=== PATIENT | female | born 1945 | race Caucasian/White ===

== ENCOUNTER → 2017-11-09 17:18 | Outpatient (CLI) | payer OTHER, SELFPAY ==
--- NOTE | 2017-11-09 17:20 | DI.RAD.S_ITS ---
PROCEDURE: XR KNEE LT 3V INDICATIONS: KNEE PAIN TECHNIQUE: 3 views of the left knee were acquired. COMPARISON: [facility], , KNEE 3V RIGHT, 03/15/2012, 11:51. FINDINGS: Bones: No fractures or dislocations. No suspicious bony lesions. There is moderately severe left medial compartment joint space narrowing, and moderate such degeneration at the right medial compartment. Soft tissues: No joint effusion. No suspicious soft tissue calcifications. IMPRESSION: Asymmetric knee joint osteoarthritis moderately severe on the left and moderate on the right involving the medial compartments. No effusion or loose body found. No acute or chronic trauma seen. Dictated by: Ralph Garcia M.D. on 11/10/2017 at 8:33 Approved by: Ralph Garcia M.D. on 11/10/2017 at 8:34
--- NOTE | 2017-11-09 17:20 | DI.RAD.S_ITS ---
PROCEDURE: XR KNEE RT 3V INDICATIONS: KNEE PAIN TECHNIQUE: 3 views of the right knee were acquired. COMPARISON: [facility], , XR KNEE LT 3V, 11/09/2017, 17:08. [facility], , KNEE 3V RIGHT, 03/15/2012, 11:51. FINDINGS: Bones: No fractures or dislocations. The narrowing of the medial compartment at the right knee is less than on the left for the current study. With reference to the prior right knee plain films from 2011 there has been a small degree of interval worsening of thinning of the medial compartment joint width. No suspicious bony lesions. Soft tissues: No joint effusion. No suspicious soft tissue calcifications. IMPRESSION: Asymmetric knee joint osteoarthritis greater on the left than the right at the medial compartment currently, and having only mildly worsened with reference to the comparison study of the right knee from 2011. No effusion or loose body suspected currently. No trauma found. Dictated by: Ralph Garcia M.D. on 11/10/2017 at 8:35 Approved by: Ralph Garcia M.D. on 11/10/2017 at 8:39
== END ==
PROVIDERS: Family Provider Family Medicine; PCP Family Medicine; Visit Provider Family Medicine
DX: M17.0 Bilateral primary osteoarthritis of knee (principal); M25.562 Pain in left knee; M25.561 Pain in right knee
CPT/HCPCS: 73562

== ENCOUNTER → 2019-11-22 10:11 | Outpatient (CLI) | payer MEDICARE, SELFPAY ==
[2019-11-22 11:58] LABS: Add Manual Diff / Slide Review NO; Basophils Absolute Auto 100 /uL (0-100); Basophils Percent Auto 1.4 % (0-2); Eosinophils Absolute Auto 300 /uL (0-450); Eosinophils Percent Auto 7.2 % (2-4); Hematocrit 39.6 % (36-46); Hemoglobin 13.3 g/dL (12.0-16.0); Lymphocytes Absolute Auto 1400 /uL (1100-4500); Lymphocytes Percent Auto 34.6 % (25-40); Mean Corpuscular HGB Conc 33.6 % (30-36); Mean Corpuscular Hemoglobin 31.3 PG (26-34); Mean Corpuscular Volume 93.1 fL (80-100); Monocytes Absolute Auto 300 /uL (0-900); Monocytes Percent Auto 7.9 % (3-14); Neutrophils Absolute Auto 2000 /uL (1500-7000); Neutrophils Percent Auto 48.9 % (50-75); Platelet Count 250 X10^3/uL (150-400); Red Blood Cell Count 4.25 X10^6/uL (4.0-5.2); White Blood Cell Count 4.1 X10^3/uL (4.5-11.0)
[2019-11-22 12:33] LABS: Alanine Aminotransferase 19 IU/L (<35); Albumin 4.1 g/dL (3.5-5.0); Albumin Globulin Ratio 1.6 (1.0-2.8); Alkaline Phosphatase 70 U/L (38-126); Aspartate Aminotransferase 28 IU/L (14-36); BUN Creatinine Ratio 18.1 (6-22); Bilirubin Total 0.6 mg/dL (0.2-1.3); Blood Urea Nitrogen 13 mg/dL (7-17); Calcium 9.3 mg/dL (8.4-10.2); Carbon Dioxide 31 mmol/L (22-32); Chloride 103 mmol/L (98-107); Estimated Glomerular Filt Rate > 60.0 mL/min (>60); Globulin 2.6 g/dL (1.7-4.1); Glucose 86 mg/dL (80-110); HEMOLYSIS < 15 (0-50); Potassium 4.8 mmol/L (3.4-5.1); Sodium 138 mmol/L (137-145); Total Protein 6.7 g/dL (6.3-8.2)
[2019-11-22 13:04] LABS: TSH w/ Reflex to FT4 1.27 uIU/mL (0.47-4.68)
== END ==
PROVIDERS: Family Provider Family Medicine; PCP Family Medicine; Referring Provider Family Medicine; Visit Provider Family Medicine
DX: E03.9 Hypothyroidism, unspecified (principal)
CPT/HCPCS: 36415; 80053; 84443; 85025

== ENCOUNTER → 2020-02-21 14:54 | Outpatient (CLI) | payer MEDICARE, SELFPAY | PROVIDERS: Family Provider Family Medicine; PCP Family Medicine; Referring Provider Family Medicine; Visit Provider Family Medicine | DX: R19.7 Diarrhea, unspecified (principal) | CPT/HCPCS: 87045; 87177; 87899 ==

== ENCOUNTER → 2020-05-03 13:15 | Outpatient (CLI) | payer MEDICARE, SELFPAY ==
--- NOTE | 2020-05-03 13:15 | DI.US.S_ITS ---
PROCEDURE: US RENAL COMPLETE INDICATIONS: LEFT LOWER QUADRANT PAIN AND FULLNESS WITH URINATION TECHNIQUE: Real-time scanning was performed of the kidneys and bladder, with image documentation. COMPARISON: [facility], CT, ABDOMEN/PELVIS WITH CONTRAST, 02/02/2017, 14:51. FINDINGS: Kidneys: Kidneys are normal in size. Right kidney measures 8.7 cm long; left kidney measures 8.6 cm long. Right renal cortical thickness is 1.0 cm; left renal cortical thickness is 1.7 cm. Renal cortical echotexture is normal. No hydronephrosis or nephrolithiasis. Right extrarenal pelvis is again seen. No suspicious solid mass lesions. Right extrarenal pelvis noted. Bladder: Pre-void bladder volume is 165 mL. Post-void residual is 13 mL. Pre-void images demonstrate no intraluminal masses or stones. On pre-void images, left ureteral jets are noted with color Doppler interrogation. (Of note, ureteral jets may not be detectable in up to 25% of cases due to insufficient differences in specific gravity between ureteral and bladder urine). Miscellaneous: No free pelvic fluid. IMPRESSION: Normal appearance of the kidneys. Dictated by: Gustavo Chaudhari [facility] Interpreted: Murray Morris MD on 05/03/2020 at 15:56 Approved by: Murray Morris M.D. on 05/03/2020 at 17:08
== END ==
PROVIDERS: Family Provider Family Medicine; PCP Family Medicine; Referring Provider Family Medicine; Visit Provider Family Medicine
DX: R30.0 Dysuria (principal); R10.32 Left lower quadrant pain
CPT/HCPCS: 76770

== ENCOUNTER → 2020-06-18 11:39 | Outpatient (CLI) | payer MEDICARE, SELFPAY ==
[2020-06-18 12:50] LABS: COVID19 -Nasal RAPID Negative (Negative)
== END ==
PROVIDERS: PCP Family Medicine; Visit Provider Obstetrics & Gynecology
DX: Z01.812 Encounter for preprocedural laboratory examination (principal); Z20.822 Contact with and (suspected) exposure to COVID-19
CPT/HCPCS: 87635; C9803

== ENCOUNTER 2020-06-19 08:27 | Day surgery (SDC) | payer MEDICARE, SELFPAY ==
[2020-06-18 17:07] VITALS: BMI 20.2
[2020-06-19] VITALS (15 sets, daily range): BP systolic 97–133; BP diastolic 45–74; PULSE 52–69; RESP 8–18; TEMP 36.3–37.7; O2SAT 95–100; BMI 20.2
--- NOTE | 2020-06-19 | PATH_ITS ---
[facility] Accession Number: [id number] . 01 Material submitted: . uterus - UTERUS, BILATERAL FALLOPIAN TUBES AND BILATERAL OVARIES . 02 Diagnosis: Uterus, Bilateral Fallopian Tubes and Bilateral Ovaries, Hysterectomy and Bilateral Salpingo-oophorectomy (Weight 41 grams): Cervix with hyperkeratosis and parakeratosis, suggestive of prolapse; negative for squamous dysplasia or malignancy. Endocervix with prominent nabothian gland cysts and no significant histomorphologic abnormality. Endometrium with cystic atrophy; negative for glandular hyperplasia, cytologic atypia, or malignancy. Myometrium with two intramural leiomyomas (3 mm and 10 mm, calcified). Uterine serosa with no significant histomorphologic abnormality. Many vessels demonstrate Monckeberg's calcifications (non-specific). Right ovary with two benign serous cysts (1- 2 mm in greatest dimension). Left ovary with no significant histomorphologic abnormality. Right and left fallopian tubes with no significant histomorphologic abnormality; negative for epithelial atypia or malignancy. [facility] 06/22/2020 1254 Local . 02 Electronically signed: . Linda Roland MD, Pathologist NPI- [id number] . 01 Gross description: . The specimen is received in formalin, labeled uterus, bilateral fallopian tubes and bilateral ovaries and consists of a 41-gram uterus and cervix with attached bilateral adnexa. The specimen measures 7.0 cm from superior fundus to cervix by 4.5 cm from cornu to cornu by 2.5 cm from anterior to posterior. The segura-pink smooth ectocervix measures 3.0 x 3.0 cm and there is a 0.8 x 0.1 cm probe-patent os. The serosa is segura-pink and smooth. The specimen is bivalved to reveal a segura-pink herringbone endocervical mucosa. The endometrial cavity measures 3.0 x 1.5 cm and displays a segura-pink glistening endometrium measuring 0.1 cm in thickness. The myometrium is segura-pink and trabeculated with focal areas of calcification, measuring 1.0 cm in thickness. There is a 1.0 x 1.0 x 0.1 cm segura-white whorled calcified intramural leiomyoma with no areas of hemorrhage, necrosis or cystic degeneration. The ovaries average 1.6 x 1.0 x 0.8 cm and display a segura cerebriform external surface. Sectioning reveals a segura ovarian stroma. The right fallopian tube measures 5.0 cm in length by 0.9 cm in diameter and the left fallopian tube measures 4.2 cm in length by 0.8 cm in diameter. The serosa is segura-pink and smooth. Sectioning reveals a segura mucosa and a stellate lumen measuring 0.2 cm in diameter. Jewelry Sales Representative sections are submitted. . A1: anterior cervix. A2: posterior cervix. A3: anterior uterus full-thickness cross-section, to include calcified leiomyoma (following decalcification). A4: anterior uterus, full-thickness sections. A5: posterior uterus, full-thickness sections. A6: right ovary, bisected and entirely submitted. A7: right fallopian tube, bisected fimbria and central cross-sections. A8: left ovary, bisected and entirely submitted. A9: left fallopian tube, bisected fimbria and central cross-sections. (EA:[id number]) /MRV 06/20/2020 1029 Local . 02 Pathologist provided ICD-10: R10.2, N81.4, R35.1 . 02 CPT . 478325 Performed at: 01 [facility] [address] [place] [address], [place], [place] [id number] MD Ismael Finney MD Phone: [phone] Performed at: 02 [facility] [address] [place], [place] [id number] MD Stacey Wyatt MD Phone: [phone]
[2020-06-19] MEDS: LACTATED RINGERS 1,000 ML 100 ML IV ×2 (09:11→14:57)
--- NOTE | 2020-06-19 09:49 | PM.PREOP ---
Pre-operative Note COVID-19 COVID-19 status: Negative Result date/Date tested (Pos, Neg/Pending): 06/18/20 Interval Note History & Physical reviewed/Exam performed by Physician: Yes Changes to H&P: No H&P completed within 30 days and has changed as indicated here:: 06/11/20
[2020-06-19] MEDS: CEFAZOLIN 2 GM/100 ML FROZ.PIGGY IV (10:45)
--- NOTE | 2020-06-19 11:13 | SUR.OPER ---
Addendum entered by Adriane Olson R.N. 06/19/20 11:30: Pt voided at 1033 prior to entering the OR. Original Note: Lithotomy on padded OR bed. Maiden Pad Positioner under torso. Head on pillow, arms padded and tucked at sides. Legs secured in padded yellow fins stirrups.
[2020-06-19] MEDS: BUPIVACAINE 0.5% W/ EPI (PF) 30 ML VIAL INJ (11:25)
--- NOTE | 2020-06-19 12:14 | P.OP_ITS ---
Operative Date/Time/Diagnoses Date of procedure: 06/19/20 Time of procedure: 12:14 Pre-op diagnosis: Second to third-degree uterine prolapse Post-op diagnosis: same Procedure & Clinicians Procedure: Procedures Operation Date: 06/19/20 09:45 Actual Procedures Side Surgeon p Laparoscopic Assisted Vag Hysterectomy W/Bilateral Salpingo-oophorectomy Yvette Hudson MD Lysis of omental to anterior abdominal wall adhesions Indications: Second to third-degree uterine prolapse Symptomatic uterine prolapse Surgeon: Yvette Hudson Crime Scene Specialist: Leeanna Celestin Anesthesia Type: General and Local Operative Notes Findings: Five week size prolapsed uterus Normal tubes and ovaries Right upper quadrant adhesions omentum to anterior abdominal wall Closure Type: primary Specimen(s): left tube & ovary, right tube & ovary and uterus Applied: catheter Estimated blood loss (mL): 75 Blood products transfused: none Procedure in detail: The patient was taken to the operating room where she was placed in the dorsal supine position. After adequate general endotracheal anesthesia was achieved, she was placed in the dorsal lithotomy position, and prepped and draped in the usual sterile fashion. A timeout was performed. A bivalve speculum was placed into the vagina, and a single-tooth tenaculum was placed on the anterior lip of the cervix. The cervical os was sequentially dilated until the ZUMI uterine manipulator could pass easily into the endometrial cavity. The single-tooth tenaculum was removed from the anterior lip of the cervix, and the bivalve speculum was removed from the vagina. Attention was then turned to the abdomen where 6 mL of half percent Marcaine with epinephrine were injected in the umbilical fold. A 5 mm incision was made. The Verees needle was placed into the peritoneal cavity, and its placement confirmed by aspiration and drop test. The abdominal cavity was insufflated with 4 L of CO2. The Verees needle was removed, and a 5 mm trocar was placed without difficulty. Initial inspection of the pelvis revealed the findings noted above. 2 other incisions were made midway between the pubic symphysis and umbilicus 4 cm lateral to the midline. These were 5 mm incisions. Two 5 mm trochars were placed under direct visualization. The right tube and ovary were grasped with an atraumatic grasper. The infundibulopelvic ligament on the right side was cauterized and cut with plasma kinetic. The round ligament and broad ligament were cauterized and cut. This was continued to the level of the uterine arteries. This was repeated on the patient's left side. The instru ments were removed from the abdomen. Attention was then turned to the vagina where the ZUMI uterine manipulator was removed from the uterus. The cervix was grasped with a 4 tooth tenaculum. 10 mL of half percent Marcaine with epinephrine were injected circumferentially around the cervix. The cervix was circumscribed. The bladder and rectum were dissected off the lower uterine segment and cervix with an open moistened Ray-Marcellus. The peritoneum was entered sharply with the Metzenbaum scissors anteriorly and a [place] placed. The peritoneum was entered posteriorly with the Metzenbaum scissors and the long weighted speculum was placed into the posterior cul-de-sac. The uterosacral cardinal ligament complexes were clamped, transected, and suture ligated with 0 Vicryl. These were attached to hemostat. The uterine arteries were clamped, transected, and suture ligated with 0 Vicryl. The uterus was handed off for specimen with the tubes. The peritoneum was closed with a pursestring suture with 2-0 Vicryl. The vaginal cuff was closed with 0 Vicryl with a series of simple interrupted sutures. The tagged sutures were cut. A moistened vaginal pack was placed into the vagina. Attention was then turned back to the abdomen and the abdominal cavity was re-insufflated with carbon dioxide gas. Inspection of the vaginal cuff showed a area of oozing in the midline. This was cauterized with the PlasmaKinetic for hemostasis. The other pedicles were hemostatic. In viewing the right upper quadrant there was omentum stuck to the anterior abdominal wall. This was taken down with the PlasmaKinetic. Hemostasis was achieved. The instruments were removed from the abdomen. The CO2 was allowed to escape. The incisions were repaired with 4 0 Monocryl in a subcuticular fashion. Steri-Strips and Allevyn dressings were placed. Sponge, lap, and instrument counts were correct x2. The patient tolerated the procedure well and was taken to PACU in stable condition. Complications: none Post-operative Condition: stable Disposition: PACU Plan for aftercare: To acute care after recovery
[2020-06-19] MEDS: OXYCODONE/ACETAMINOPHEN 5/325 TABLET 1 TAB PO ×2 (12:41→22:01)
[2020-06-19] MEDS: ONDANSETRON 4 MG/2 ML INJ IV (12:41)
[2020-06-19] MEDS: KETOROLAC 30 MG/ML VIAL 15 MG IV (18:07)
[2020-06-19] MEDS: DOCUSATE 250 MG CAPSULE PO (21:55)
--- NOTE | 2020-06-19 23:07 | PC.NURSE ---
Blood pressure slightly low at 97/46. Temp 99.8 temporal, retaken oral and was 98.2 F. Pain 5/10 in low abdomen. Given PRN percocet at 2200. Three lap site. Middle site dressing was fully saturated with blood and allevyn dressing was changed. Bassett cath patent and collecting clear, yellow urine. Passing gas.
[2020-06-20] MEDS: LACTATED RINGERS 1,000 ML 100 ML IV (00:40)
[2020-06-20] MEDS: KETOROLAC 30 MG/ML VIAL 15 MG IV ×2 (00:40→05:46)
[2020-06-20 00:45] VITALS: BP 91/52; PULSE 62; RESP 18; TEMP 37; O2SAT 97
[2020-06-20 05:30] VITALS: BP 96/58; PULSE 71; RESP 18; TEMP 36.8; O2SAT 98
[2020-06-20] MEDS: LEVOTHYROXINE 50 MCG TABLET PO (05:46)
[2020-06-20] MEDS: OXYCODONE/ACETAMINOPHEN 5/325 TABLET 1 TAB PO ×2 (06:13→10:20)
[2020-06-20 07:01] LABS: Add Manual Diff / Slide Review NO; Basophils Absolute Auto 100 /uL (0-100); Basophils Percent Auto 0.8 % (0-2); Eosinophils Absolute Auto 0 /uL (0-450); Eosinophils Percent Auto 0.2 % (2-4); Hematocrit 33.2 % (36-46); Hemoglobin 11.1 g/dL (12.0-16.0); Lymphocytes Absolute Auto 1800 /uL (1100-4500); Lymphocytes Percent Auto 17.9 % (25-40); Mean Corpuscular HGB Conc 33.5 % (30-36); Mean Corpuscular Hemoglobin 30.9 PG (26-34); Mean Corpuscular Volume 92.3 fL (80-100); Monocytes Absolute Auto 700 /uL (0-900); Monocytes Percent Auto 7.4 % (3-14); Neutrophils Absolute Auto 7200 /uL (1500-7000); Neutrophils Percent Auto 73.7 % (50-75); Platelet Count 209 X10^3/uL (150-400); Red Cell Distribution Width 13.4 % (11.6-14.8); White Blood Cell Count 9.8 X10^3/uL (4.5-11.0)
[2020-06-20 07:28] VITALS: BP 113/61; PULSE 55; RESP 16; TEMP 36.6; O2SAT 99
[2020-06-20] MEDS: DOCUSATE 250 MG CAPSULE PO (09:13)
--- NOTE | 2020-06-20 09:16 | CM.DPC ---
DCP/Assessment: Reviewed chart. Patient is a 75yr old female admitted to [facility] for elective repair of Uterovaginal prolapse with Dr. Hudson. PCP listed is Dr. Lim. Primary payor is 1)[facility]. Met with patient explained CM/SW role. Patient alert and oriented in chair at time of visit. Patient reports that she will be discharging this AM. Orders have been obtained. Per nursing patient need to urinate prior to d/c. Patient reports that her spouse will pick her up. Patient provided with number to call when he arrives. Staff aware that he will pick her up at ED entrance. P: Home today. CHEPE Palmer Discharge Planning/Care Management CM Discharge Assessment Start: 06/20/20 09:14 Freq: Status: Active Protocol: Document 06/20/20 09:14 HONORIOS (Rec: 06/20/20 09:16 KJS [id number]) Discharge Planning Assessment Assigned Nurse Wound CHEPE Palmer Contact Information Edu Block (spouse) # Advance Directives? Yes Advance Directives on File No History Provided By Patient,Medical Record Prior Living Arrangements House Household Members spouse Type of transporation used prior to Drives own vehicle admit Independent with ADL's Yes Is patient alert and oriented? Yes Caregiver for Another No Barriers to Discharge No Discharge Plan Home Transportation Arrangement Family to provide transport home. Referrals Initiated None needed Whiteboard Updated in Patient Room with Yes name and ext. # of Nurse Wound Review Status In Process Next Review Type Continued Stay Review Pre-Anesthesia Assessment Start: 06/05/20 10:27 Freq: Status: Complete Protocol: Document 06/18/20 17:07 FELIPE (Rec: 06/05/20 10:50 [facility] [id number]) Pre-Anesthesia Assessment Patient Information Reviewed Via Chart Review Seen Specialist in Last 12 Months Yes Specialist Seen Contracts Intern Height 149.86 cm Weight 45.359 kg Body Mass Index (BMI) 20.2 Anesthesia Review Requested No Injection Specialist No alcohol intake never Smoking Status Never smoker Bladder Pattern Nocturia Patient No Lactating No Presence of External or Internal Medical Yes Devices Marital Status
--- NOTE | 2020-06-20 10:58 | PC.NURSE ---
Discharge: Pt feels ready to d/c home. Has been able to void x2 since hazel removal, Scant vag flow. UOP is pink tinged. No clots seen. Po pain meds are effective per pt. Tolerates diet w/out problems. Has been up in room and gait is steady. Seen by MD and received d/c instructions from her. Reviewed d/c packet. Rx was esent and pt shown this. Questions answered. Pt d/c home via auto w/spouse.
== END 2020-06-20 10:26 | disposition home or self-care (01) ==
LOC: OR 08:32 → AC 08:34
PROVIDERS: PCP Family Medicine; Referring Provider Obstetrics & Gynecology; Visit Provider Obstetrics & Gynecology
PROC: 0UT9FZZ Resection of Uterus, Via Natural or Artificial Opening With Percutaneous Endoscopic Assistance (ICD-10-PCS; CPT 58552; principal; 2020-06-19 09:45)
DX: N81.2 Incomplete uterovaginal prolapse (principal); K66.0 Peritoneal adhesions (postprocedural) (postinfection); R35.1 Nocturia; N88.8 Other specified noninflammatory disorders of cervix uteri; D25.1 Intramural leiomyoma of uterus; N83.202 Unspecified ovarian cyst, left side
CPT/HCPCS: 58552; 36415; 85025; J0690; J1100; J1885; J2250; J2405; J2704; J3010

== ENCOUNTER 2020-07-20 15:06 | Emergency (ER) | payer MEDICARE, SELFPAY ==
[2020-06-19 14:07] VITALS: BMI 20.2
[2020-07-20 15:27] VITALS: BP 106/65; PULSE 79; RESP 12; TEMP 36.4; O2SAT 99; BMI 20.2
--- NOTE | 2020-07-20 15:36 | DI.US.S_ITS ---
PROCEDURE: US PERIPH VENOUS LOW EXTREM LT INDICATIONS: LEFT LEG PAIN TECHNIQUE: Real-time imaging, as well as color and pulse Doppler interrogation, were performed of the lower extremity deep veins from the inguinal ligament to the popliteal fossa. COMPARISON: None. FINDINGS: The common femoral, femoral and popliteal veins are normally compressible, and free of intraluminal thrombus. Color and pulse Doppler demonstrate normal phasic intraluminal flow. There is normal augmentation response to distal compression maneuver. IMPRESSION: Negative for deep venous thrombosis. Dictated by: Jose Cruz Leung M.D. on 07/20/2020 at 15:38 Approved by: Jose Cruz Leung M.D. on 07/20/2020 at 15:38
--- NOTE | 2020-07-20 16:54 | ED_ITS ---
HPI - Extremity Injury (Lower) General Chief Complaint: Extremity Injury, Lower Stated Complaint: LEFT LEG PAIN Time Seen by Provider: 07/20/20 16:29 Source: patient Mode of arrival: Wheelchair Limitations: no limitations History of Present Illness HPI Narrative: Patient is a 75-year-old female were sent over from the walk-in clinic for evaluation of left knee pain and concern for DVT. Patient states that a couple days ago she got out of her car and started having discomfort in her left knee. She did take an ibuprofen last evening if she does feel somewhat better today. She contacted her insurance resource nurse who told her that she should be evaluated for this. She was seen at the walk-in clinic because of tenderness behind her knee she was sent to the emergency department for concerns of a blood clot. She has no chest pain or shortness of breath. Related Data Home Medications Medication Instructions Recorded Confirmed Red Yeast Rice (#RED YEAST RICE) 2 capl PO QDAY #0 07/01/12 07/05/20 cholecalciferol (vitamin D3) 2,000 unit PO QDAY #0 07/01/12 07/05/20 [Vitamin D3] multivit 23-cnkmcvll-mab-chrom 1 cap PO DAILY #0 07/01/12 07/05/20 niacin 1,000 mg PO QDAY #0 07/01/12 07/05/20 omega-3 fatty acids-vitamin E 1 cap PO DAILY #0 07/01/12 07/05/20 coenzyme Q10 [CoQ-10] 100 mg PO DAILY #0 03/03/16 07/05/20 [vitamin b6] #0 02/18/17 07/05/20 thiamine HCl (vitamin B1) [Vitamin 100 mg PO DAILY #0 02/18/17 07/05/20 B-1] magnesium 1 mg PO DAILY 12/08/19 07/05/20 potassium citrate PO 12/08/19 07/05/20 turmeric PO 12/08/19 07/05/20 ferrous sulfate [Iron (ferrous 325 mg PO DAILY 06/19/20 07/05/20 sulfate)] Previous Rx's Medication Instructions Recorded triamcinolone acetonide 0.1 % See Rx Instructions TOPICAL BID 04/23/20 topical cream #15 g levothyroxine 50 mcg tablet 50 mcg PO QDAY #90 tabs 05/21/20 oxycodone 5 mg PO Q4H PRN #14 tab 06/20/20 Allergies Allergy/AdvReac Type Severity Reaction Status Date / Time No Known Drug Allergies Allergy Verified 07/20/20 15:31 Review of Systems Constitutional Constitutional: Denies fever(s) and Denies headache(s) ENT Ears, Nose, Mouth, and Throat: Denies headache(s) Cardiovascular Cardiovascular: Denies chest pain Respiratory Respiratory: Denies pain with cough Gastrointestinal Gastrointestinal: Denies abdominal pain Genitourinary Genitourinary: Denies dysuria Genitourinary: Denies dysuria Musculoskeletal Comments: Left knee pain Integumentary/Breasts Skin/Breast: Denies lesions and Denies rash Neurologic Neurologic: Denies behavioral changes and Denies headache(s) Psychiatric Psychiatric: Denies behavioral changes Hematologic/Lymphatic On Anticoagulants: No Allergic/Immunologic Allergic/Immunologic: Denies urticaria Patient History Medical History Atrophic vulvovaginitis Benign skin growth Bilateral primary osteoarthritis of knee Insomnia Pelvic relaxation Postmenopausal Surgical History History of cataract removal with insertion of prosthetic lens History of surgical removal of skin lesion Status post breast biopsy Family History Sister Hypothyroid Father Cancer Social History marital status: household members: spouse Smoking Status: Never smoker alcohol intake: never substance use type: does not use Smoking Status: Never smoker Substance Use Type: does not use Exam Initial Vital Signs Initial Vital Signs: Vital Signs Temperature 97.6 F 07/20/20 15:27 Pulse Rate 79 07/20/20 15:27 Respiratory Rate 12 07/20/20 15:27 Blood Pressure 106/65 07/20/20 15:27 Pulse Oximetry 99 07/20/20 15:27 Const General: cooperative and comfortable Limitations: mental status not altered HENMT Head: normal to inspection and normocephalic Resp Effort & Inspection: normal respiratory effort Cardio Rate: regular rate Skin Lesions: no lesions Rashes: no rashes Neuro General: patient alert and patient awake Cognition: normal cognition Speech: speech normal Extrem General: capillary refill normal and No edema Other: Patient is ambulatory. Has no tenderness to palpation along bilateral hamstrings. Does have some tenderness along the lateral aspect of the left knee. Neck tenderness in the posterior aspect. Psych Appearance: grossly normal and well kempt Course Orders Ordered: ED Orders 07/20/20 15:36 US perip venous low extrem lt Stat Vital Signs Vital signs: Vital Signs - 8 hr 07/20/20 15:27 07/20/20 17:15 Temperature 97.6 F Pulse Rate 79 77 Respiratory Rate 12 12 Blood Pressure 106/65 147/70 H Pulse Oximetry 99 98 MDM - Extremity Injury (Lower) Imaging Data US - DVT: Radiologist's Impression: [address] [id number] ReportSigned Patient: Radha Block CMR#: [id number]: 4Acct:[id number]/Sex: 75 / FDate of Service: 07/20/20Loc: EDAccession Number: [id number] Procedure: US perip venous low extrem lt Ordering Provider: Dwayne Bush D.O. PROCEDURE: US PERIP VENOUS LOW EXTREM LT INDICATIONS: LEFT LEG PAIN TECHNIQUE: Real-time imaging, as well as color and pulse Doppler interrogation, were performed of the lower extremity deep veins from the inguinal ligament to the popliteal fossa. COMPARISON: None. FINDINGS: The common femoral, femoral and popliteal veins are normally compressible, and free of intraluminal thrombus. Color and pulse Doppler demonstrate normal phasic intraluminal flow. There is normal augmentation response to distal compression maneuver. IMPRESSION: Negative for deep venous thrombosis. Dictated by: Jose Cruz Leung M.D. on 07/20/2020 at 15:38 Approved by: Jose Cruz Leung M.D. on 07/20/2020 at 15:38 [facility] Narrative Medical decision making narrative: No signs of fracture. Has not had any trauma. No DVT noted on the ultrasound. No indication for x-rays. She does feel better than what she did yesterday. She was given conservative treatments. Was given return precautions and follow-up instructions. She expressed understanding and agreement. Discharge Plan Departure Patient Disposition: Home Clinical Impression: Acute pain of right knee Instructions: How To Perform RICE (Rest, Ice, Compress, Elevate), DI for Knee Pain Activity Restrictions/Additional Instructions: Continue all of your medications as directed. Keep your knee elevated and iced like we discussed. Contact your primary provider for follow-up. Return to the emergency department for any new or worsening symptoms. Prescriptions: No Action triamcinolone acetonide 0.1 % cream See Rx Instructions topical BID Qty: 15 RF: 0 niacin 500 MG tablet 1,000 mg PO QDAY Qty: 0 RF: 0 omega-3 fatty acids-vitamin E 1,000 mg Capsule 1 cap PO DAILY Qty: 0 RF: 0 cholecalciferol (vitamin D3) [Vitamin D3] 2,000 UNIT capsule 2,000 unit PO QDAY Qty: 0 RF: 0 multivit 81-nxqenyfh-wfk-chrom 2.5-200-1 mg-mg-mg Capsule 1 cap PO DAILY Qty: 0 RF: 0 Red Yeast Rice (#RED YEAST RICE) 2 capl PO QDAY Qty: 0 RF: 0 coenzyme Q10 [CoQ-10] 100 mg Capsule 100 mg PO DAILY Qty: 0 RF: 0 thiamine HCl (vitamin B1) [Vitamin B-1] 100 mg Tablet 100 mg PO DAILY Qty: 0 RF: 0 [vitamin b6] Qty: 0 RF: 0 levothyroxine [Synthroid] 50 mcg tablet 50 mcg PO QDAY Qty: 90 RF: 2 magnesium 1 mg PO DAILY RF: 0 potassium citrate PO RF: 0 turmeric PO RF: 0 ferrous sulfate [Iron (ferrous sulfate)] 325 mg (65 mg iron) Tablet 325 mg PO DAILY RF: 0 oxycodone 5 mg tablet 5 mg PO Q4H PRN (Reason: pain) Qty: 14 RF: 0 Referrals: Jelani Lim MD [Primary Care Provider] -
--- NOTE | 2020-07-20 17:00 | PC.NURSE ---
no injury or trauma. No visible injury noted. CMS intact. Able to partially bear weight, limps on leg. Reports a sudden onset of posterior leg pain from mid thigh to mid calf after approx one hour drive. No relief with rest, ice or ibuprofen.
[2020-07-20 17:15] VITALS: BP 147/70; PULSE 77; RESP 12; O2SAT 98
== END 2020-07-20 17:15 | disposition home or self-care (01) ==
PROVIDERS: Emergency Provider Emergency Medicine; PCP Family Medicine
DX: M25.562 Pain in left knee (principal)
CPT/HCPCS: 93971; 99281; 99282

== ENCOUNTER → 2020-10-31 09:59 | Outpatient (CLI) | payer MEDICARE, SELFPAY ==
[2020-06-19 14:07] VITALS: BMI 20.2
[2020-10-31 10:52] LABS: Add Manual Diff / Slide Review NO; Basophils Absolute Auto 0 /uL (0-100); Eosinophils Absolute Auto 200 /uL (0-450); Eosinophils Percent Auto 3.3 % (2-4); Hematocrit 39.6 % (36-46); Hemoglobin 13.3 g/dL (12.0-16.0); Lymphocytes Absolute Auto 1900 /uL (1100-4500); Lymphocytes Percent Auto 39.4 % (25-40); Mean Corpuscular HGB Conc 33.5 % (30-36); Mean Corpuscular Hemoglobin 31.1 PG (26-34); Mean Corpuscular Volume 92.8 fL (80-100); Monocytes Absolute Auto 400 /uL (0-900); Monocytes Percent Auto 8.4 % (3-14); Neutrophils Absolute Auto 2400 /uL (1500-7000); Neutrophils Percent Auto 47.9 % (50-75); Platelet Count 251 X10^3/uL (150-400); Red Blood Cell Count 4.26 X10^6/uL (4.0-5.2); Red Cell Distribution Width 13.2 % (11.6-14.8); White Blood Cell Count 4.9 X10^3/uL (4.5-11.0)
[2020-10-31 10:56] LABS: Alanine Aminotransferase 20 IU/L (<35); Albumin 3.7 g/dL (3.5-5.0); Albumin Globulin Ratio 1.3 (1.0-2.8); Alkaline Phosphatase 66 U/L (38-126); Aspartate Aminotransferase 28 IU/L (14-36); BUN Creatinine Ratio 19.4 (6-22); Bilirubin Total 0.6 mg/dL (0.2-1.3); Blood Urea Nitrogen 14 mg/dL (7-17); Calcium 8.9 mg/dL (8.4-10.2); Carbon Dioxide 30 mmol/L (22-32); Chloride 105 mmol/L (98-107); Estimated Glomerular Filt Rate > 60.0 mL/min (>60); Globulin 2.8 g/dL (1.7-4.1); Glucose 95 mg/dL (80-110); HEMOLYSIS < 15 (0-50); Sodium 139 mmol/L (137-145); Total Protein 6.5 g/dL (6.3-8.2)
[2020-10-31 11:22] LABS: TSH w/ Reflex to FT4 1.54 uIU/mL (0.47-4.68)
== END ==
PROVIDERS: PCP Family Medicine; Referring Provider Family Medicine; Visit Provider Family Medicine
DX: E03.9 Hypothyroidism, unspecified (principal)
CPT/HCPCS: 36415; 80053; 84443; 85025

== ENCOUNTER → 2021-03-27 11:12 | Outpatient (CLI) | payer MEDICARE, SELFPAY ==
[2020-06-19 14:07] VITALS: BMI 20.2
[2021-03-27 12:19] LABS: Add Manual Diff / Slide Review NO; Basophils Absolute Auto 100 /uL (0-100); Eosinophils Absolute Auto 200 /uL (0-450); Eosinophils Percent Auto 3.9 % (2-4); Hematocrit 42.2 % (36-46); Hemoglobin 14.2 g/dL (12.0-16.0); Lymphocytes Absolute Auto 1300 /uL (1100-4500); Lymphocytes Percent Auto 33.7 % (25-40); Mean Corpuscular HGB Conc 33.7 % (30-36); Mean Corpuscular Hemoglobin 30.7 PG (26-34); Mean Corpuscular Volume 91.3 fL (80-100); Monocytes Absolute Auto 300 /uL (0-900); Monocytes Percent Auto 7.3 % (3-14); Neutrophils Absolute Auto 2100 /uL (1500-7000); Neutrophils Percent Auto 53.1 % (50-75); Platelet Count 266 X10^3/uL (150-400); Red Blood Cell Count 4.62 X10^6/uL (4.0-5.2); Red Cell Distribution Width 13.4 % (11.6-14.8); White Blood Cell Count 3.9 X10^3/uL (4.5-11.0)
[2021-03-27 12:31] LABS: Hemoglobin A1C% w Est Avg Glu 5.3 % (4.0-6.0)
[2021-03-27 12:43] LABS: Blood Urea Nitrogen 15 mg/dL (7-17); Calcium 9.1 mg/dL (8.4-10.2); Carbon Dioxide 31 mmol/L (22-32); Chloride 105 mmol/L (98-107); Estimated Glomerular Filt Rate > 60.0 mL/min (>60); Glucose 94 mg/dL (80-110); HEMOLYSIS < 15 (0-50); Potassium 4.2 mmol/L (3.4-5.1); Sodium 138 mmol/L (137-145)
[2021-03-27 13:51] LABS: Appearance Urine UA CLEAR; Bilirubin Urine UA NEGATIVE (NEGATIVE); Color Urine UA YELLOW; Glucose Urine UA NEGATIVE (Negative); Ketones Urine UA NEGATIVE (NEGATIVE); Leukocyte Esterase Urine UA TRACE (NEGATIVE); Nitrite Urine UA NEGATIVE (Negative); Occult Blood Urine UA TRACE-INTACT (Negative); Protein Urine UA NEGATIVE (Negative); Urobilinogen Urine UA 0.2 E.U./dL (0.2)
[2021-03-27 14:16] LABS: pH Urine UA 6.5 (4.5-8.0)
[2021-03-27 14:17] LABS: Bacteria Urine Occasional (0-1); Culture Indicated Urine Specimen Cultured; RBC Urine 0-1/HPF (0-5/HPF); Squamous Epithelial Cell Urine 0-1 /HPF (0-5/HPF); WBC Urine 0-1/HPF (0-5/HPF)
== END ==
PROVIDERS: PCP Family Medicine; Referring Provider Orthopaedic Surgery; Visit Provider Orthopaedic Surgery
DX: Z01.818 Encounter for other preprocedural examination (principal); R73.9 Hyperglycemia, unspecified; Z01.812 Encounter for preprocedural laboratory examination; N39.0 Urinary tract infection, site not specified
CPT/HCPCS: 36415; 80048; 81001; 83036; 85025; 87086; 93005; 93010

== ENCOUNTER → 2021-10-08 15:11 | Outpatient (CLI) | payer MEDICARE, SELFPAY ==
[2020-06-19 14:07] VITALS: BMI 20.2
--- NOTE | 2021-10-08 | DI.MG.S_ITS ---
BILATERAL DIGITAL SCREENING MAMMOGRAM 3D/2D WITH CAD: 10/08/2021 CLINICAL: Routine screening. Family history of breast cancer. Comparison is made to exams dated: 07/21/2018 mammogram, 03/25/2016 ultrasound, and 03/16/2014 mammogram - outside location. The tissue of both breasts is predominantly fatty. Current study was also evaluated with a Computer Aided Detection (CAD) system. There are benign vascular calcifications in both breasts. There also is a biopsy clip in the right breast. No significant masses, calcifications, or other findings are seen in either breast. There has been no significant interval change. IMPRESSION: BENIGN There is no mammographic evidence of malignancy. A 1 year screening mammogram is recommended. Based on the Tyrer Cuzick model (a risk assessment model) the patient's lifetime risk is 1.3% and her 10 year risk is 0.0%. According to the ACR, ACS, and NCCN guidelines, an annual breast MRI exam along with mammogram is recommended if the patient's lifetime risk is 20% or greater. This exam was interpreted at Station ID: [id number]. NOTE: For mammograms, a report in lay terms will be sent to the patient. Approximately 15% of breast malignancies will not be visualized mammographically. In the management of a palpable breast mass, a negative mammogram must not discourage biopsy of a clinically suspicious lesion. Electronically Signed By: Leo cameron/emmanuel:10/09/2021 09:43:24 letter sent: Normal Exam ACR BI-RADS Category 2: Benign Finding(s) 3342F
== END ==
PROVIDERS: PCP Family Medicine; Referring Provider Family Medicine; Visit Provider Family Medicine
DX: Z12.31 Encounter for screening mammogram for malignant neoplasm of breast (principal); Z80.3 Family history of malignant neoplasm of breast
CPT/HCPCS: 77063; 77067

== ENCOUNTER 2022-08-14 08:09 | Day surgery (SDC) | payer MEDICARE, SELFPAY ==
[2021-11-01 11:27] VITALS: BMI 20.2
[2022-08-12 09:39] VITALS: BMI 19.5
[2022-08-14] VITALS (16 sets, daily range): BP systolic 90–126; BP diastolic 36–64; PULSE 60–84; RESP 12–18; TEMP 35.8–36.9; O2SAT 82–100; BMI 19.8
[2022-08-14] MEDS: LACTATED RINGERS 1,000 ML 100 ML IV (08:47)
[2022-08-14 08:54] LABS: COVID19 -Nasal RAPID Negative (Negative)
--- NOTE | 2022-08-14 09:36 | PM.PREOP ---
Pre-operative Note COVID-19 Criteria for continued procedure: Non-surgical alternatives not available or appropriate per current SOC Interval Note History & Physical reviewed/Exam performed by Physician: Yes Changes to H&P: No H&P completed within 30 days and has changed as indicated here:: 08/06/22
[2022-08-14] MEDS: CEFAZOLIN 2 GM/100 ML PREMIX 100 ML IV (09:42)
--- NOTE | 2022-08-14 09:53 | SUR.OPER ---
Lithotomy on padded OR bed, head on pillow, arms secured on padded arm boards at <90 degrees abduction. Legs secured in padded yellow fins stirrups.
[2022-08-14] MEDS: BUPIVACAINE 0.25% (PF) 30 ML, EPINEPHrine 0.15 MG INJ (11:06)
[2022-08-14] MEDS: HYDROMORPHONE 2 MG INJ IV ×3 (11:27→11:40)
--- NOTE | 2022-08-14 11:48 | P.OP_ITS ---
Operative Date/Time/Diagnoses Date of procedure: 08/14/22 Time of procedure: 11:48 Pre-op diagnosis: Cystocele, rectocele, and vaginal vault prolapse Post-op diagnosis: same Procedure & Clinicians Procedure: Procedures Operation Date: 08/14/22 09:15 Actual Procedure Side Surgeon p Anterior/Posterior repair, sacrospinous ligament fixation Yvette Hudson MD Indications: Symptomatic cystocele and rectocele Symptomatic vaginal vault prolapse Surgeon: Yvette Hudson Fountain Waitress/Waiter: Adelita Anderson Anesthesia Type: General Operative Notes Findings: Third-degree cystocele Third-degree rectocele Third-degree vaginal vault prolapse Closure Type: primary Specimen(s): none Applied: catheter (To continuous drainage) and other (Betadine moistened vaginal pack) Estimated blood loss (mL): 25 Blood products transfused: none Procedure in detail: The patient was taken to the operating room where she was placed in the dorsal supine position. After adequate general endotracheal anesthesia was achieved, she was placed in the dorsal lithotomy position, and prepped and draped in the usual sterile fashion. A time-out was performed. A Bassett catheter had previously been placed into the bladder. A weighted speculum was placed into the vagina. The apex of the cystocele was grasped with Allis clamps. 4 cc of 0.25% Marcaine with epinephrine were injected between the Allis clamps. An incision was made with a # 10 blade between the Allis clamps. Wide Allis clamps were placed in the midline along the cystocele to within 1.5 cm of the urethral meatus. 10 cc of 0.25% Marcaine with epinephrine were injected submucosally on either side. The mucosa was undermined using the Metzenbaum scissors moving wide Allis clamps to the mucosal edges. This was continued all the way to the last Allis clamp which was 1.5 cm from the urethral meatus. The mucosa was dissected off of the underlying fascia using an open moistened Ray-Marcellus and a #10 blade. The fascia was reapproximated with 0 Vicryl with simple interrupted sutures. The excess vaginal mucosa was excised. The mucosa was closed with 2-0 Vicryl with simple interrupted sutures including the underlying fascia to close the space. The weighted speculum was removed from the vagina. Two Allis clamps were placed at the mucocutaneous junction. 6 cc of 0.25% Marcaine with epinephrine were injected between the Allis clamps. Using the # 10 blade an incision was made between the 2 Allis clamps and extended down in a triangular fashion on the perineal body excising approximately 7 mm onto the perineal body. This included the underlying subcutaneous tissue. Wide Allis clamps were placed in the midline of the rectocele posteriorly. 10 cc of 0.25% Marcaine with epinephrine were injected submucosally on either side of the Allis clamps. The mucosa was undermined using the Metzenbaum scissors, moving the wide Allis clamps to the mucosal edges. The fascia was dissected off of the mucosa using an open moistened Ray-Marcellus and a #10 blade. At this point the sacral spinous ligament was identified manually. The adventitia was dissected off of the sacral spinous ligament in a blunt fashion. Using the Capio needle, a 2-0 Prol april suture was placed into the sacral spinous ligament 2 cm from the ischial spine. This was tagged with hemostat. Using the Capio needle the 2-0 Prolene suture was placed as far back on the vaginal mucosa taking care not to come all the way through the mucosa into the vagina. These were tagged with hemostats. Excess posterior vaginal mucosa was excised. 2-0 Vicryl was used to close the mucosa on the apex with 3 simple interrupted sutures. The fascia was reapproximated using 0 Vicryl in simple interrupted sutures. The sacral spinous ligament suture was then tied down bringing the vagina all the way back and slightly to the right. There was good suspension. The remainder of the mucosal sutures were tied down near the apex. The remainder of the vaginal mucosa posteriorly was closed with 2-0 Vicryl in simple interrupted sutures. On the perineum 0 Vicryl was used to close the levator muscles. 2-0 Vicryl was used to close the perineal body. 2-0 chromic was used in a subcuticular fashion to close the skin. A Betadine moistened vaginal packing was placed into the vagina. There was 100 cc of clear yellow urine. A rectal exam was done and there were no sutures palpable in the rectum. Sponge, lap, and instrument counts were correct x2. The patient tolerated the procedure well, and was taken to PACU in stable condition. Complications: none Post-operative Condition: stable Disposition: PACU Plan for aftercare: To acute care after recovery
[2022-08-14] MEDS: OXYCODONE IR 5 MG TABLET PO ×2 (12:03→22:40)
[2022-08-14] MEDS: IBUPROFEN 600 MG TABLET PO ×2 (12:52→18:06)
[2022-08-14] MEDS: LACTATED RINGERS 1,000 ML 70 ML IV (12:53)
[2022-08-14] MEDS: ACETAMINOPHEN 325 MG TABLET 650 MG PO ×2 (12:53→18:07)
[2022-08-14] MEDS: DOCUSATE 100 MG CAPSULE 200 MG PO (20:09)
[2022-08-15] MEDS: IBUPROFEN 600 MG TABLET PO (02:30)
[2022-08-15] MEDS: ACETAMINOPHEN 325 MG TABLET 650 MG PO (02:31)
[2022-08-15 06:22] VITALS: BP 116/59; PULSE 69; RESP 17; TEMP 36.8; O2SAT 96
--- NOTE | 2022-08-15 06:22 | PC.NURSE ---
Removed patient hazel catheter, removed 10 mls from bulb, catheter removed intact, no issues. Removed vaginal packing, approximately 30 inches of packing, no bleeding or clots removed with packing. Will continue to monitor pt for urination and bleeding.
[2022-08-15 06:41] LABS: Add Manual Diff / Slide Review NO; Basophils Absolute Auto 100 /uL (0-100); Basophils Percent Auto 0.8 % (0-2); Eosinophils Absolute Auto 100 /uL (0-450); Eosinophils Percent Auto 0.9 % (2-4); Hematocrit 32.7 % (36-46); Hemoglobin 11.2 g/dL (12.0-16.0); Lymphocytes Absolute Auto 1700 /uL (1100-4500); Lymphocytes Percent Auto 22.7 % (25-40); Mean Corpuscular HGB Conc 34.2 % (30-36); Mean Corpuscular Hemoglobin 31.1 PG (26-34); Monocytes Absolute Auto 600 /uL (0-900); Monocytes Percent Auto 8.1 % (3-14); Neutrophils Absolute Auto 5100 /uL (1500-7000); Neutrophils Percent Auto 67.5 % (50-75); Platelet Count 207 X10^3/uL (150-400); Red Blood Cell Count 3.59 X10^6/uL (4.0-5.2); Red Cell Distribution Width 13.1 % (11.6-14.8); White Blood Cell Count 7.6 X10^3/uL (4.5-11.0)
[2022-08-15 06:49] LABS: BUN Creatinine Ratio 27.4 (6-22); Blood Urea Nitrogen 20 mg/dL (7-17); Calcium 7.8 mg/dL (8.4-10.2); Carbon Dioxide 28 mmol/L (22-32); Chloride 104 mmol/L (98-107); Estimated Glomerular Filt Rate > 60 mL/min (>60); Glucose 96 mg/dL (80-110); HEMOLYSIS 26 (0-50); Potassium 4.3 mmol/L (3.4-5.1); Sodium 134 mmol/L (137-145)
[2022-08-15] MEDS: DOCUSATE 100 MG CAPSULE 200 MG PO (08:22)
--- NOTE | 2022-08-15 08:47 | CM.DANOTE ---
Initial DCP Assessment Note Pt is a 77 yo female, resident of [place], now POD#1 from colporrhaphy- anterior/posterior repair, ligament fixation PCP: Jelani Lim Payer: TACHO NICOLE Reviewed chart, initial DCP assessment completed w/information available on the chart Patient is indp at baseline and has planned for return home to the care of her spouse upon discharge No barriers identified at this time to patient's safe discharge home w/spouse to assist; close outpatient f/u recommended. CM team will plan to follow closely today in case any DC needs, questions, concerns arise CHEPE Bloom Discharge Planning/Care Management CM Discharge Assessment Start: 08/15/22 08:44 Freq: Status: Active Protocol: Document 08/15/22 08:44 HEIDI (Rec: 08/15/22 08:46 HEIDI [id number]) Discharge Planning Assessment Assigned Supervisor Treating And Pumping CHEPE Pedro DPOA/Assigned Designee Name Edu Block, spouse Contact Information [phone] Advance Directives? Yes Advance Directives on File No History Provided By Patient,Significant Other, Medical Record Household Members spouse Type of transporation used prior to Drives own vehicle admit Independent with ADL's Yes Is patient alert and oriented? Yes Barriers to Discharge No Comment Home w/spouse expected once medically cleared for discharge Discharge Plan Home Transportation Arrangement Family to provide transport home. Referrals Initiated None needed
== END 2022-08-15 10:21 | disposition home or self-care (01) ==
LOC: OR 08:10 → AC 08:11
PROVIDERS: PCP Family Medicine; Referring Provider Obstetrics & Gynecology; Visit Provider Obstetrics & Gynecology
PROC: (CPT 57282; principal; 2022-08-14 09:15)
DX: N81.10 Cystocele, unspecified (principal); N81.6 Rectocele; Z20.822 Contact with and (suspected) exposure to COVID-19
CPT/HCPCS: 57282; 57260; 36415; 80048; 85025; 87635; C9803; J0171; J0690; J1100; J1170; J2405; J2704; J3010

== ENCOUNTER → 2022-09-06 08:51 | Outpatient (CLI) | payer MEDICARE, SELFPAY ==
[2022-08-14 08:13] VITALS: BMI 19.8
[2022-09-06 10:01] LABS: Appearance Urine UA CLEAR; Bilirubin Urine UA NEGATIVE (NEGATIVE); Color Urine UA YELLOW; Glucose Urine UA NEGATIVE (Negative); Ketones Urine UA NEGATIVE (NEGATIVE); Leukocyte Esterase Urine UA 2+ (NEGATIVE); Nitrite Urine UA NEGATIVE (Negative); Occult Blood Urine UA TRACE-INTACT (Negative); Protein Urine UA NEGATIVE (Negative); Specific Gravity Urine UA <=1.005 (1.000-1.035); Urobilinogen Urine UA 0.2 E.U./dL (0.2)
[2022-09-06 10:43] LABS: Bacteria Urine Occasional (0-1); RBC Urine 0-1/HPF (0-5/HPF); Squamous Epithelial Cell Urine 0-1 /HPF (0-5/HPF); WBC Urine 1-5/HPF (0-5/HPF)
[2022-09-06 10:44] LABS: Culture Indicated Urine Specimen Cultured
== END ==
PROVIDERS: PCP Family Medicine; Referring Provider Obstetrics & Gynecology; Visit Provider Obstetrics & Gynecology
DX: N39.0 Urinary tract infection, site not specified (principal)
CPT/HCPCS: 81003; 81015; 87086

== ENCOUNTER → 2022-10-16 11:38 | Outpatient (CLI) | payer MEDICARE, SELFPAY ==
[2022-08-14 08:13] VITALS: BMI 19.8
--- NOTE | 2022-10-16 | DI.MG.S_ITS ---
BILATERAL DIGITAL SCREENING MAMMOGRAM 3D/2D WITH CAD: 10/16/2022 CLINICAL: Routine screening. Family history of breast cancer. Comparison is made to exams dated: 10/08/2021 mammogram - [facility], 07/21/2018 mammogram, and 03/16/2014 mammogram - outside location. There are scattered areas of fibroglandular density in both breasts (category b / 25%-50% glandular tissue). Current study was also evaluated with a Computer Aided Detection (CAD) system. There are benign calcifications in both breasts. There also are benign vascular calcifications in both breasts. Additionally, there are benign post operative findings and biopsy clip in the right breast. No significant masses, calcifications, or other findings are seen in either breast. There has been no significant interval change. IMPRESSION: BENIGN There is no mammographic evidence of malignancy. A 1 year screening mammogram is recommended. Based on the Tyrer Cuzick model (a risk assessment model) the patient's lifetime risk is 1.8% and her 10 year risk is 0.0%. According to the ACR, ACS, and NCCN guidelines, an annual breast MRI exam along with mammogram is recommended if the patient's lifetime risk is 20% or greater. This exam was interpreted at Station ID: [id number]. NOTE: For mammograms, a report in lay terms will be sent to the patient. Approximately 15% of breast malignancies will not be visualized mammographically. In the management of a palpable breast mass, a negative mammogram must not discourage biopsy of a clinically suspicious lesion. Electronically Signed By: Murray cutler/emmanuel:10/17/2022 07:51:13 letter sent: Normal Exam ACR BI-RADS Category 2: Benign Finding(s) 3342F
== END ==
PROVIDERS: PCP Family Medicine; Referring Provider Family Medicine; Visit Provider Family Medicine
DX: Z12.31 Encounter for screening mammogram for malignant neoplasm of breast (principal); Z80.3 Family history of malignant neoplasm of breast
CPT/HCPCS: 77063; 77067

== ENCOUNTER → 2023-05-14 09:48 | Outpatient (CLI) | payer MEDICARE, SELFPAY ==
[2022-08-14 08:13] VITALS: BMI 19.8
--- NOTE | 2023-05-14 09:50 | DI.US.S_ITS ---
PROCEDURE: US SOFT TISSUE HEAD AND NECK INDICATIONS: LEFT NECK LUMP TECHNIQUE: Real-time scanning was performed of the neck region of interest, with image documentation. COMPARISON: None. FINDINGS: Palpable abnormality left neck corresponds with a well-defined hypoechoic mass with internal vascularity measuring overall 1.8 x 0.6 x 1.4 cm. Both submandibular glands are also noted to be heterogenous with increased vascularity. No adenopathy appreciated. IMPRESSION: Solid vascular hypoechoic nodule corresponds with palpable abnormality. Advise follow-up contrast CT neck and or ultrasound-guided percutaneous biopsy Incidental bilateral submandibular glands are possibly hypervascular and could be further evaluated on follow-up CT neck is well Approved by: Bryon Gilman M.D. on 05/14/2023 at 18:02
[2023-05-14 10:54] LABS: Add Manual Diff / Slide Review NO; Basophils Absolute Auto 0 /uL (0-100); Eosinophils Absolute Auto 200 /uL (0-450); Eosinophils Percent Auto 4.6 % (2-4); Hematocrit 39.9 % (36-46); Hemoglobin 13.3 g/dL (12.0-16.0); Lymphocytes Absolute Auto 1400 /uL (1100-4500); Lymphocytes Percent Auto 33.1 % (25-40); Mean Corpuscular HGB Conc 33.3 % (30-36); Mean Corpuscular Hemoglobin 30.7 PG (26-34); Mean Corpuscular Volume 92.1 fL (80-100); Monocytes Absolute Auto 600 /uL (0-900); Monocytes Percent Auto 13.4 % (3-14); Neutrophils Absolute Auto 2000 /uL (1500-7000); Neutrophils Percent Auto 47.9 % (50-75); Platelet Count 257 X10^3/uL (150-400); Red Blood Cell Count 4.33 X10^6/uL (4.0-5.2); Red Cell Distribution Width 12.8 % (11.6-14.8); White Blood Cell Count 4.3 X10^3/uL (4.5-11.0)
[2023-05-14 11:27] LABS: Alanine Aminotransferase 21 IU/L (<35); Albumin 3.8 g/dL (3.5-5.0); Albumin Globulin Ratio 1.3 (1.0-2.8); Alkaline Phosphatase 67 U/L (38-126); Aspartate Aminotransferase 34 IU/L (14-36); BUN Creatinine Ratio 16.4 (6-22); Bilirubin Total 0.6 mg/dL (0.2-1.3); Blood Urea Nitrogen 12 mg/dL (7-17); Calcium 8.8 mg/dL (8.4-10.2); Carbon Dioxide 28 mmol/L (22-32); Chloride 100 mmol/L (98-107); Cholesterol 238 mg/dL (140-199); Estimated Glomerular Filt Rate > 60 mL/min (>60); Globulin 2.9 g/dL (1.7-4.1); Glucose 86 mg/dL (80-110); HDL Cholesterol 70 mg/dL (40-60); HEMOLYSIS < 15 (0-50); LDL Cholesterol Calculated 153 mg/dL (<100); Potassium 4.1 mmol/L (3.4-5.1); Sodium 136 mmol/L (137-145); Total Protein 6.7 g/dL (6.3-8.2); Triglycerides 76 mg/dL (35-150)
[2023-05-14 11:57] LABS: TSH w/ Reflex to FT4 1.67 uIU/mL (0.47-4.68)
== END ==
PROVIDERS: PCP Family Medicine; Referring Provider Family Medicine; Visit Provider Family Medicine
DX: R22.1 Localized swelling, mass and lump, neck (principal); E03.9 Hypothyroidism, unspecified; M85.80 Other specified disorders of bone density and structure, unspecified site; Z78.0 Asymptomatic menopausal state
CPT/HCPCS: 36415; 76536; 80053; 80061; 84443; 85025

== ENCOUNTER → 2023-06-02 07:34 | Outpatient (CLI) | payer MEDICARE, SELFPAY ==
[2022-08-14 08:13] VITALS: BMI 19.8
--- NOTE | 2023-06-02 | PATH_ITS ---
[facility] Accession Number: [id number] No. of containers..01 Tissue . 01 Material submitted: . parotid gland - LEFT PAROTID GLAND MASS . 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 See comment. MRV 06/04/2023 1629 Local . 01 Comment: The needle core fragments are composed of a sharply demarcated lesion predominanted by chondromyxoid stroma with scant benign small ducts and cords of bland epithelioid cells. There is no significant cytologic atypia. The features overall are consistent with a pleomorphic adenoma; however, this limited core biopsy may not be customer service representative of the lesion as a whole. . 01 Electronically signed: . Ally Nevarez MD, Pathologist NPI- [id number] . 01 Gross description: . The specimen is received in formalin labeled with the patient's name, , and left parotid gland mass, and consists of nine delicate cores of white-segura soft tissue ranging from 0.1 to 0.7 cm in length and averaging less than 0.1 cm in diameter. The tissue is entirely submitted in cassettes A1-A2. ([id number]) /RONNI 06/03/2023 1139 Local . 01 Pathologist provided ICD-10: R22.1 . 01 CPT . 358375 Performed at: 01 [facility] [address] [place] [address], [place], [place] [id number] MD Ismael Finney MD Phone: [phone]
--- NOTE | 2023-06-02 07:39 | DI.US.S_ITS ---
PROCEDURE: US BIOPSY MUSCLE SUPERFICIAL Ultrasound-guided superficial mass biopsy. INDICATIONS: LEFT NECK MASS TECHNIQUE: The indications, alternatives, benefits, risks, and complications of the procedure were explained to the patient. Written informed consent was obtained and placed in the chart. Continuous EKG and hemodynamic monitoring was started by trained personnel. Real-time sonography was utilized to choose the site for percutaneous biopsy of a superficial right posterior neck mass. The skin was prepped and draped in the usual sterile fashion. 1% lidocaine was infiltrated down to the site of interest. A coaxial needle was then advanced into the site of interest under direct sonographic visualization. A biopsy apparatus was then utilized, and core biopsies were obtained. The needle was then withdrawn; a bandage was applied to the biopsy site. COMPARISON: [facility], , US SOFT TISSUE HEAD AND NECK, 05/14/2023, 9:58. FINDINGS: Biopsy site(s): Left posterior neck mass in the area of parotid gland Needle: 20 g Temno biopsy needle set. Number of passes: 3 Medications: 1% lidocaine for local anaesthesia. Complications: None. IMPRESSION: Successful ultrasound-guided biopsy of a left posterior neck mass, with pathology results pending. Dictated by: Meenakshi Rizzo M.D. on 06/02/2023 at 15:28 Approved by: Meenakshi Rizzo M.D. on 06/02/2023 at 15:33
== END ==
LOC: US 07:34
PROVIDERS: PCP Family Medicine; Referring Provider Family Medicine; Visit Provider Family Medicine
DX: R22.1 Localized swelling, mass and lump, neck (principal)
CPT/HCPCS: 20200; 76942

== ENCOUNTER → 2023-12-17 13:53 | Outpatient (CLI) | payer MEDICARE, SELFPAY ==
[2022-08-14 08:13] VITALS: BMI 19.8
--- NOTE | 2023-12-17 14:19 | EKG_ITS ---
[facility] [address], [place] [address] Test Date: 2023-12-17 Pat Name: Radha Block Department: [facility] Room: Gender: Female Farm Equipment Service Technician: : 1945 Requested By: Order Number: [id number] Reading MD: Jose Merino MD Measurements Intervals [place] Rate: 68 P: 67 OR: 158 QRS: -2 QRSD: 86 T: 44 QT: 392 QTc: 416 Interpretive Statements Normal sinus rhythm Electronically Signed On 12-17-2023 16:27:22 PDT by oJse Merino MD
[2023-12-17 14:53] LABS: Add Manual Diff / Slide Review NO; Basophils Absolute Auto 100 /uL (0-100); Basophils Percent Auto 1.3 % (0-2); Eosinophils Absolute Auto 200 /uL (0-450); Hematocrit 38.4 % (36-46); Hemoglobin 12.9 g/dL (12.0-16.0); Lymphocytes Absolute Auto 1600 /uL (1100-4500); Lymphocytes Percent Auto 32.2 % (25-40); Mean Corpuscular HGB Conc 33.6 % (30-36); Mean Corpuscular Hemoglobin 31.2 PG (26-34); Mean Corpuscular Volume 92.8 fL (80-100); Monocytes Absolute Auto 400 /uL (0-900); Monocytes Percent Auto 8.2 % (3-14); Neutrophils Absolute Auto 2700 /uL (1500-7000); Neutrophils Percent Auto 54.3 % (50-75); Platelet Count 257 X10^3/uL (150-400); Red Blood Cell Count 4.14 X10^6/uL (4.0-5.2); Red Cell Distribution Width 13.1 % (11.6-14.8); White Blood Cell Count 4.9 X10^3/uL (4.5-11.0)
[2023-12-17 15:09] LABS: Hemoglobin A1C% w Est Avg Glu 5.4 % (4.0-6.0)
[2023-12-17 15:11] LABS: Blood Urea Nitrogen 18 mg/dL (7-17); Calcium 8.7 mg/dL (8.4-10.2); Carbon Dioxide 29 mmol/L (22-32); Chloride 102 mmol/L (98-107); Estimated Glomerular Filt Rate > 60 mL/min (>60); Glucose 127 mg/dL (80-110); HEMOLYSIS < 15 (0-50); Potassium 4.2 mmol/L (3.4-5.1); Sodium 135 mmol/L (137-145)
== END ==
PROVIDERS: PCP Family Medicine; Referring Provider Orthopaedic Surgery; Visit Provider Orthopaedic Surgery
DX: Z01.818 Encounter for other preprocedural examination (principal); R73.9 Hyperglycemia, unspecified; Z01.812 Encounter for preprocedural laboratory examination; N39.0 Urinary tract infection, site not specified
CPT/HCPCS: 36415; 80048; 81001; 83036; 85025; 93005; 93010

== ENCOUNTER → 2023-12-24 17:09 | Outpatient (CLI) | payer MEDICARE, SELFPAY ==
[2022-08-14 08:13] VITALS: BMI 19.8
[2023-12-24 17:40] LABS: Appearance Urine UA CLEAR; Bilirubin Urine UA NEGATIVE (NEGATIVE); Color Urine UA YELLOW; Glucose Urine UA TRACE g/dL (Negative); Ketones Urine UA TRACE (NEGATIVE); Leukocyte Esterase Urine UA TRACE (NEGATIVE); Nitrite Urine UA NEGATIVE (Negative); Occult Blood Urine UA NEGATIVE (Negative); Protein Urine UA NEGATIVE (Negative); Specific Gravity Urine UA 1.015 (1.000-1.035); Urobilinogen Urine UA 0.2 E.U./dL (0.2)
[2023-12-24 17:51] LABS: RBC Urine None Seen (0-5/HPF); Urine Volume 10mL (spun); WBC Urine 0-1/HPF (0-5/HPF)
[2023-12-24 17:52] LABS: Amorphous Sediment Urine 4+; Bacteria Urine Few (2-10); Culture Indicated Urine Specimen Cultured; Squamous Epithelial Cell Urine None Seen (0-5/HPF)
== END ==
LOC: LAB 17:10
PROVIDERS: PCP Family Medicine; Referring Provider Orthopaedic Surgery; Visit Provider Orthopaedic Surgery
DX: N39.0 Urinary tract infection, site not specified (principal)
CPT/HCPCS: 81001; 87086

== ENCOUNTER → 2024-05-10 14:37 | Outpatient (CLI) | payer MEDICARE, SELFPAY ==
[2022-08-14 08:13] VITALS: BMI 19.8
--- NOTE | 2024-05-10 | DI.MG.S_ITS ---
BILATERAL DIGITAL SCREENING MAMMOGRAM 3D/2D WITH CAD: 05/10/2024 CLINICAL: Routine screening. Family history of breast cancer. Comparison is made to exams dated: 10/16/2022 mammogram, 10/08/2021 mammogram - [facility], and 07/21/2018 mammogram - outside location. There are scattered areas of fibroglandular density (category b / 25%-50% glandular tissue). Current study was also evaluated with a Computer Aided Detection (CAD) system. There are benign calcifications in both breasts. There also are benign vascular calcifications in both breasts. Additionally, there are benign post operative findings and biopsy clip in the right breast. No significant masses, calcifications, or other findings are seen in either breast. There has been no significant interval change. IMPRESSION: BENIGN There is no mammographic evidence of malignancy. A 1 year screening mammogram is recommended. Based on the Tyrer Cuzick model (a risk assessment model) the patient's lifetime risk is 1.3% and her 10 year risk is 0.0%. According to the ACR, ACS, and NCCN guidelines, an annual breast MRI exam along with mammogram is recommended if the patient's lifetime risk is 20% or greater. This exam was interpreted at Station ID: [id number]. NOTE: For mammograms, a report in lay terms will be sent to the patient. Approximately 15% of breast malignancies will not be visualized mammographically. In the management of a palpable breast mass, a negative mammogram must not discourage biopsy of a clinically suspicious lesion. Electronically Signed By: Murray cutler/emmanuel:05/11/2024 17:27:11 letter sent: Normal Exam ACR BI-RADS Category 2: Benign
== END ==
PROVIDERS: PCP Family Medicine; Referring Provider Family Medicine; Visit Provider Family Medicine
DX: Z12.31 Encounter for screening mammogram for malignant neoplasm of breast (principal); Z80.3 Family history of malignant neoplasm of breast
CPT/HCPCS: 77063; 77067

== ENCOUNTER → 2024-07-12 14:50 | Outpatient (CLI) | payer MEDICARE, SELFPAY ==
[2022-08-14 08:13] VITALS: BMI 19.8
[2024-07-12 16:57] LABS: Rubella Antibody IgG 72.6 IU/mL (>15)
[2024-07-14 09:09] LABS: Rubeola Measles IgG > 300.0 AU/mL (Immune >16.4)
== END ==
PROVIDERS: Physician Assistant; PCP Family Medicine; Referring Provider Family Medicine; Visit Provider Family Medicine
DX: Z71.84 Encounter for health counseling related to travel (principal)
CPT/HCPCS: 36415; 86735; 86762; 86765

== ENCOUNTER → 2024-12-19 09:36 | Outpatient (CLI) | payer MEDICARE, SELFPAY ==
[2022-08-14 08:13] VITALS: BMI 19.8
[2024-12-19 10:23] LABS: Add Manual Diff / Slide Review NO; Hematocrit 40.7 % (36-46); Hemoglobin 13.5 g/dL (12.0-16.0); Lymphocytes Absolute Auto 1300 /uL (1100-4500); Mean Corpuscular HGB Conc 33.3 % (30-36); Mean Corpuscular Hemoglobin 30.8 PG (26-34); Mean Corpuscular Volume 92.7 fL (80-100); Platelet Count 245 X10^3/uL (150-400)
[2024-12-19 10:42] LABS: Alanine Aminotransferase 19 IU/L (<35); Albumin 4.3 g/dL (3.5-5.0); Albumin Globulin Ratio 1.5 (1.0-2.8); Alkaline Phosphatase 73 U/L (38-126); Blood Urea Nitrogen 21 mg/dL (7-17); Calcium 9.1 mg/dL (8.4-10.2); Carbon Dioxide 26 mmol/L (22-32); Chloride 103 mmol/L (98-107); Cholesterol 241 mg/dL (140-199); Estimated Glomerular Filt Rate > 60 mL/min (>60); Globulin 2.9 g/dL (1.7-4.1); Glucose 122 mg/dL (70-99); HDL Cholesterol 96 mg/dL (40-60); HEMOLYSIS < 15 (0-50); Potassium 4.4 mmol/L (3.4-5.1); Sodium 136 mmol/L (137-145); Total Protein 7.2 g/dL (6.3-8.2); Triglycerides 65 mg/dL (35-150)
[2024-12-19 11:14] LABS: TSH w/ Reflex to FT4 0.75 uIU/mL (0.47-4.68)
== END ==
PROVIDERS: PCP Family Medicine; Referring Provider Family Medicine; Visit Provider Physician Assistant
DX: E03.9 Hypothyroidism, unspecified (principal); E78.5 Hyperlipidemia, unspecified; K57.90 Diverticulosis of intestine, part unspecified, without perforation or abscess without bleeding
CPT/HCPCS: 36415; 80053; 80061; 84443; 85025